=== PATIENT | male | born 1965 | race Caucasian/White ===

== ENCOUNTER 2017-09-11 12:12 | Day surgery (SDC) | payer BC ==
[~2017-09-11] VITALS: Ht 198.1 cm; Wt 108.2 kg
[2017-09-11] MEDS ORDERED: GLIM2TAB PO (13:58)
[2017-09-11] MEDS ORDERED: SIMV-39 PO (13:58)
[2017-09-11] MEDS ORDERED: CHOL400T10 PO (13:58)
[2017-09-11] MEDS ORDERED: OMEP20CA16 PO (13:58)
[2017-09-11] MEDS ORDERED: METF500T4 PO (13:58)
[2017-09-11] MEDS ORDERED: [UNRECOGNIZED DRUG - CODE] PO (13:58)
[2017-09-11 14:04] VITALS: Ht 198.1 cm; Wt 108.2 kg
[2017-09-11 15:20] VITALS: BP 108/72; PULSE 74; RESP 18
[2017-09-11] MEDS ORDERED: PROPOFOL 60 ML ONE (15:47)
[2017-09-11] MEDS ORDERED: LIDOCAINE 2% (SDV) 5 ML INJ ONE (15:47)
[2017-09-11 16:49] VITALS: BP 119/81; PULSE 75; RESP 20
--- NOTE | 2017-09-11 16:50 | OPPN ---
Date/Time of Note Date/Time of Note DATE: 09/11/17 TIME: 16:31 Proc Note GI Procedure Date 09/11/17 Indication: other (CRC screening) Pre-procedure Diagnosis CRC screening Post-procedure Diagnosis Impression: 3mm sigmoid polyp. Ablated Mild left-sided diverticulosis. Moderate-sized internal hemorrhoids Otherwise normal colonoscopy to cecum. Plan: Follow up as scheduled] High fiber diet Annual hemoccult stool testing [Review pathology] [Surveillance colonoscopy in 5 years] . Procedure Performed: Colonoscopy (With ablation) Surgeon DUANE TOBAR MD See signature line Rolling Machine Operator Automatic none Anesthesia Type: MAC Anesthesiologist: ARELIS TYSON MD Tourniquet Time none EBL none Transfusion required none Biopsy 1: None Polyp 1: Sigmoid polyp Grafts/Implants none Tubes/Drains none Complication(s) none Disposition: home Procedure Description After informed consent, with the patient/relatives understanding the procedure, its indications and potential risks and complications, including but not limited to: Allergic reaction, bleeding, perforation, infection, and after all pertinent questions were answered to the patient's satisfaction, the patient/ relatives signed the witnessed informed consent. Following this, premedication was administered slowly IV push under careful cardiovascular and respiratory monitoring with pulse OXIM[employer]RY, automatic blood pressure, and groundwater monitoring technician. Once the sedative effect was achieved, the patient was placed in the left lateral decubitus position, digital rectal examination was performed. The colonoscope was then introduced and advanced under visual control throughout all segments of the colon including: the rectum, sigmoid, descending colon, splenic flexure, transverse colon, hepatic flexure, ascending colon and finally reaching the cecum which was clearly identified by transillumination, finger indentation and the ileocecal valve. Careful examination of the mucosa of the lower gastrointestinal tract both on insertion as well as withdrawal of the instrument disclosed the following findings: PREPARATION QUALITY: [Adequate], RECTAL EXAM: The anorectal area was visualized examined and digital rectal examination performed with the following findings: No evidence of perirectal disease, no masses. COLONIC MUCOSA: The mucosa of all segments of the colon was carefully examined and showed the following findings: There is a 3 mm polyp in the sigmoid. Ablated. There is mild diverticulosis of the left colon. There are moderate-sized internal hemorrhoids. Otherwise the examined mucosa appears within normal limits. There is no evidence of inflammatory changes, other polyps or neoplasms, vascular malformation, or any other abnormality. The instrument was then withdrawn, the patient tolerated the procedure well and was transferred out of the Endoscopy Suite awake and in good condition to continue recovery under observation. Copies To: CC: DUANE TOBAR MD, MORDO MD Sep 11, 2017 16:50
== END 2017-09-11 19:43 | disposition home or self-care (01) ==
LOC: GIL 12:12
PROVIDERS: ATTEND Internal Medicine Gastroenterology
DX: Z12.11 Encounter for screening for malignant neoplasm of colon (principal); D12.5 Benign neoplasm of sigmoid colon; K64.8 Other hemorrhoids; E11.9 Type 2 diabetes mellitus without complications; I10 Essential (primary) hypertension; J44.9 Chronic obstructive pulmonary disease, unspecified; E66.9 Obesity, unspecified; Z68.29 Body mass index [BMI] 29.0-29.9, adult; F17.200 Nicotine dependence, unspecified, uncomplicated
CPT/HCPCS: 45380; 82962; 88305; Z7610